=== PATIENT | male | born 1960 | race Caucasian/White ===

== ENCOUNTER 2017-11-08 08:13 | Emergency (ER) | payer BC ==
--- NOTE | 2017-11-08 08:25 | ER Report ---
History and Physical Time Seen By MD: 08:23 HPI/ROS CHIEF COMPLAINT: Rib pain HISTORY OF PRESENT ILLNESS: 57-year-old male otherwise healthy comes emergency Department after having mechanical fall 2 days prior to presentation where he said he tripped while moving a dresser landed on the side of the dresser and noted some pain to his inferior left rib area noticed some obvious bruising and abrasion said he felt findings had some soreness and tenderness but otherwise unremarkable however his spouse told him that she wanted him to be evaluated Macy came to the emergency room. No head or neck trauma no loss of consciousness patient denies any additional injuries at this time REVIEW OF SYSTEMS: Respiratory: No cough, no dyspnea. Cardiovascular: No chest pain, no palpitations. Gastrointestinal: No vomiting, no abdominal pain. Musculoskeletal: No back pain. Remainder of the 14 system rev: Yes Allergies: Coded Allergies: allopurinol (Verified Allergy, Unknown, 11/08/17) ciprofloxacin (Verified Allergy, Unknown, 11/08/17) Home Meds Reported Medications Indomethacin (INDOMETHACIN) 25 Mg Capsule, 75 MG PO PRN, CAPSULE 11/08/17 Reviewed Nurses Notes: Yes Old Medical Records Reviewed: Yes Constitutional Vital Sign - Last 24 Hours 11/08/17 11/08/17 11/08/17 08:21 08:22 08:30 Temp 97.8 Pulse 71 Resp 20 B/P (MAP) 149/92 149/92 (111) 125/81 (96) Pulse Ox 92 O2 Delivery Room Air Physical Exam General Appearance: The patient is alert, has no immediate need for airway protection and no current signs of toxicity. [ ] Eyes: Pupils equal and round no injection. Respiratory: Chest is non tender, lungs are clear to auscultation. Cardiac: regular rate and rhythm [ ] Gastrointestinal: Abdomen is soft and non tender, no masses, bowel sounds normal. Musculoskeletal: Neck: Neck is supple and non tender. Extremities have full range of motion and are non tender. Skin: No rashes or lesions. Rib and chest wall examination demonstrates ecchymosis in the inferior left rib anterior margin approximately between 4-4.5 cm in width and approximately 10-12 cm in length there is also 3 linear abrasions which are well healed and scabbed over otherwise unremarkable both lungs fully inflated with normal breath sounds bilaterally DIFFERENTIAL DIAGNOSIS: After history and physical exam differential diagnosis was considered for rib fracture versus contusion Medical Decision Making ED Course/Re-evaluation ED Course Clinical course 57-year-old male today status post fall x-rays do confirm a suspicious nondisplaced fracture anterior to the 6th 7th and 8th rib anteriorly there is a subtle density in the left costophrenic angle which showed a tiny amount of atelectasis follow-up with primary care pain medication prescribed Decision to Disposition Date: Nov 08, 2017 Decision to Disposition Time: 09:11 Depart Departure Latest Vital Signs Vital Signs Date Time Temp Pulse Resp B/P (MAP) Pulse Ox O2 Delivery O2 Flow Rate FiO2 11/08/17 08:30 125/81 (96) 11/08/17 08:21 97.8 71 20 92 Room Air Impression: Primary Impression: Closed traumatic nondisplaced fracture of rib Condition: Improved Disposition: HOME OR SELF-CARE Referrals: DAV ROGER (PCP) 5 Days Patient Instructions: Rib Fracture (DC) ERIBERTO MASCORRO MD Nov 08, 2017 08:24
[2017-11-08] MEDS ORDERED: INDO-1 PO (08:27)
--- NOTE | 2017-11-08 09:08 | RADIOLOGY IMAGING REPORT ---
FACILITY: [facility] PATIENT NAME: Timo Connelly : 1960 MR: [id number] V: [id number] EXAM DATE: ORDERING PHYSICIAN: ERIBERTO MASCORRO TECHNOLOGIST: Location: [facility] - [place], [place] Patient: Timo Connelly : 1960 Visit/Account:[id number] Date of Sevice: 11/08/2017 Exam type: RIBS LEFT History: Fell Friday, November 03, 2017 had left rib pain Comparison: None. Findings: Two views of the lower left ribs were submitted. There is a mild cortical irregularity seen along th e anterior aspect of the left sixth, seventh and eighth ribs suspicious for small nondisplaced fractu res. Subtle area of increased density in the left costophrenic angle may represent tiny amount of at electasis, hemorrhage or left pleural effusion IMPRESSION: 1. Findings are suspicious for nondisplaced fractures through the anterior aspect the left sixth sev enth and eighth ribs. Subtle area of increased density in the left costophrenic angle may represent a tiny amount of atelec tasis, hemorrhage or left pleural effusion Report Dictated By: Zaira Hamilton MD at 11/08/2017 9:00 AM Report E-Signed By: Zaira Hamilton MD at 11/08/2017 9:05 AM WSN:[email or web address]
--- NOTE | 2017-11-08 09:10 | RADIOLOGY IMAGING REPORT ---
FACILITY: [facility] PATIENT NAME: Timo Connelly : 1960 MR: [id number] V: [id number] EXAM DATE: ORDERING PHYSICIAN: ERIBERTO MASCORRO TECHNOLOGIST: Location: [facility] - [place] Patient: Timo Connelly : 1960 Visit/Account:[id number] Date of Sevice: 11/08/2017 Exam type: CHEST PA AND LAT History: trauma Comparison: Left rib series performed today. Findings: A subtle area of increased density in the left costophrenic angle which may represent a small amount of atelectasis, hemorrhage or left pleural effusion. Today's left rib series with suspicious for non specific fractures through several lower anterior left ribs which are better seen in that study. The re is no evidence of a pneumothorax. The cardiac silhouette appears normal. IMPRESSION: 1. Subtle area of increased density in the left costophrenic angle may represent a small amount of a telectasis, hemorrhage or left pleural effusion. No pneumothorax seen Report Dictated By: Zaira Hamilton MD at 11/08/2017 9:05 AM Report E-Signed By: Zaira Hamilton MD at 11/08/2017 9:07 AM WSN:[email or web address]
[2017-11-08 09:14] VITALS: BP 130/81
== END 2017-11-08 09:20 | disposition home or self-care (01) ==
LOC: ER 08:26
DX: S22.42XA Multiple fractures of ribs, left side, initial encounter for closed fracture (principal)
CPT/HCPCS: 71046; 71100; 99284

== ENCOUNTER → 2018-01-16 | Day surgery (SDC) | payer BC ==
[~2018-01-16] VITALS: Ht 180.3 cm; Wt 108.0 kg
[~2018-01-16] MED LIST: INDO-21 PO; LIDOCAINE MPF 1% 5 ML VIAL ONE; LIDOCAINE/SOD BICARB 8.4% SYR ID ONE; NORMOSOL R SOLN(*) 1000 ML BAG 1,000 ML IV PRN; PROPOFOL EMUL(*) 10MG/ML 20 ML 40 ML ONE
[2018-01-16 07:50] VITALS: BP 132/93
[2018-01-16 09:37] VITALS: BP 86/61
--- NOTE | 2018-01-16 09:38 | Short(Outpt) Discharge Summary ---
Discharge Summary Reason for Hosp/Final Diag: (1) Colon cancer screening Status: Chronic Hospital Course & Plan: Colonoscopy completed without any problems: normal. Departure Discharge to: Home, Self Care Discharge Instructions Home Meds Reported Medications Indomethacin (INDOMETHACIN) 25 Mg Capsule, 75 MG PO PRN, CAPSULE 11/08/17 Diet: Regular Activity: As Tolerated Special Instructions: Your colonoscopy was completed without any problems and your prep was excellent (Good Job!!). I didn't find any polyps, cancers, or other abnormalities; it was completely normal. I recommend that your next colonoscopy be in 10 year for continued colorectal cancer screening. MELIDA FLORES MD Jan 16, 2018 09:38
[2018-01-16 09:45] VITALS: BP 96/62
[2018-01-16 10:01] VITALS: BP 114/77
[2018-01-16 10:10] VITALS: BP 118/82
[2018-01-16 10:12] VITALS: BP 135/91
== END ==
LOC: OR 02:34
PROVIDERS: ATTEND Surgery
DX: Z12.11 Encounter for screening for malignant neoplasm of colon (principal); G47.33 Obstructive sleep apnea (adult) (pediatric); M1A.9XX0 Chronic gout, unspecified, without tophus (tophi)
CPT/HCPCS: 36416; 82948; J2001; J2704

== ENCOUNTER → 2018-02-02 | Outpatient (CLI) | payer BC, OTHER ==
[~2018-02-02] MED LIST changes: -LIDOCAINE MPF 1% 5 ML VIAL ONE; -LIDOCAINE/SOD BICARB 8.4% SYR ID ONE; -NORMOSOL R SOLN(*) 1000 ML BAG 1,000 ML IV PRN; -PROPOFOL EMUL(*) 10MG/ML 20 ML 40 ML ONE
[2018-02-02 12:15] LABS: LDL CHOLESTEROL 109 mg/dl
== END ==
LOC: LAB 11:48
PROVIDERS: ATTEND Nurse Practitioner Family
DX: E11.9 Type 2 diabetes mellitus without complications (principal); E78.5 Hyperlipidemia, unspecified; Z00.00 Encounter for general adult medical examination without abnormal findings
CPT/HCPCS: 36415; 82040; 82247; 82310; 82374; 82435; 82465; 82565; 82947; 83036; 83718; 84075; 84132; 84155; 84295; 84450; 84460; 84478; 84520

== ENCOUNTER → 2018-02-28 | Outpatient (CLI) | payer BC, OTHER ==
--- NOTE | 2018-02-28 15:55 | RADIOLOGY IMAGING REPORT ---
FACILITY: [facility] PATIENT NAME: Timo Connelly : 1960 MR: [id number] V: [id number] EXAM DATE: ORDERING PHYSICIAN: DAV ROGER TECHNOLOGIST: [place] [facility] [place] Timo Connelly : 1960 Visit/Account:[id number] Date of Sevice: 02/28/2018 Bilateral elbow ultrasound. HISTORY: Lumps along posterior elbows bilaterally for three months. COMPARISON: None. Heterogeneous soft tissue thickening is present along the olecranons bilaterally. Portions of the th ickened areas are hyperemic. The olecranon bursal sacs are not distended with fluid. The soft tissu es are otherwise unremarkable. IMPRESSION: Bilateral olecranon bursitis. Report Dictated By: Agustin Hutchinson MD at 02/28/2018 3:47 PM Report E-Signed By: Agustin Hutchinson MD at 02/28/2018 3:50 PM WSN:[email or web address]
--- NOTE | 2018-02-28 15:55 | RADIOLOGY IMAGING REPORT ---
FACILITY: [facility] PATIENT NAME: Timo Connelly : 1960 MR: [id number] V: [id number] EXAM DATE: ORDERING PHYSICIAN: DAV ROGER TECHNOLOGIST: Location: [facility] - [place] Patient: Timo Connelly : 1960 Visit/Account:[id number] Date of Sevice: 02/28/2018 Bilateral elbow ultrasound. HISTORY: Lumps along posterior elbows bilaterally for three months. COMPARISON: None. Heterogeneous soft tissue thickening is present along the olecranons bilaterally. Portions of the th ickened areas are hyperemic. The olecranon bursal sacs are not distended with fluid. The soft tissu es are otherwise unremarkable. IMPRESSION: Bilateral olecranon bursitis. Report Dictated By: Agustin Hutchinson MD at 02/28/2018 3:47 PM Report E-Signed By: Agustin Hutchinson MD at 02/28/2018 3:50 PM WSN:[email or web address]
--- NOTE | 2018-02-28 16:00 | RADIOLOGY IMAGING REPORT ---
[place] [facility] [place] NAME: Timo Connelly : 1960 MR: [id number] V: [id number] EXAM DATE: ORDERING PHYSICIAN: DAV ROGER TECHNOLOGIST: Location: [facility] Patient: Timo Connelly : 1960 Visit/Account:[id number] Date of Sevice: 02/28/2018 Right clavicle, two views. HISTORY: Right clavicle pain. COMPARISON: None. Small subchondral cysts without joint space narrowing are present in the acromioclavicular joint. Th e acromion process has a mild lateral downsloping. Mild spurring is present along the inferior aspec t of the glenoid. No acute fractures. The right sternoclavicular joint is partially obscured. IMPRESSION: Mild acromioclavicular osteoarthritis. Etiologies such as gout or other inflammatory arthritis are n ot excluded. Mild glenohumeral osteoarthritis. Mild acromion downsloping which may predispose to supraspinatus impingement. Report Dictated By: Agustin Hutchinson MD at 02/28/2018 3:53 PM Report E-Signed By: Agustin Hutchinson MD at 02/28/2018 3:56 PM WSN:[email or web address]
== END ==
LOC: US 01:46
PROVIDERS: ATTEND Nurse Practitioner Family
DX: M70.22 Olecranon bursitis, left elbow (principal); M70.21 Olecranon bursitis, right elbow
CPT/HCPCS: 76999

== ENCOUNTER → 2018-07-24 | Outpatient (CLI) | payer BC | LOC: LAB 16:17 | PROVIDERS: ATTEND Nurse Practitioner Family | DX: M10.9 Gout, unspecified (principal) | CPT/HCPCS: 36415; 84550 ==

== ENCOUNTER → 2018-09-21 | Outpatient (CLI) | payer BC ==
[2018-09-21 10:45] LABS: PLATELET COUNT, AUTOMATED 324 K/uL (150-450)
== END ==
LOC: LAB 10:21
PROVIDERS: ATTEND Nurse Practitioner Family
DX: M10.9 Gout, unspecified (principal); M25.50 Pain in unspecified joint
CPT/HCPCS: 36415; 84443; 84550; 85025; 85651; 86038; 86430